=== PATIENT | female | born 1985 | race American Indian/Alaskan Native ===

== ENCOUNTER 2018-02-25 23:45 | Emergency (ER) | payer SELFPAY | END 2018-02-26 00:35 | disposition left against medical advice (07) | LOC: ED 23:45 | DX: R51 Headache (principal); Z53.21 Procedure and treatment not carried out due to patient leaving prior to being seen by health care provider ==

== ENCOUNTER 2019-04-07 11:11 | Emergency (ER) | payer OTHER ==
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
[2019-04-07] MEDS ORDERED: IBUPROFEN 800 MG TAB PO ONE (15:54)
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
[2019-04-07 17:22] VITALS: BP 127/85
== END 2019-04-07 17:22 | disposition home or self-care (01) ==
LOC: ED 11:11
DX: S39.012A Strain of muscle, fascia and tendon of lower back, initial encounter (principal); S00.93XA Contusion of unspecified part of head, initial encounter; I10 Essential (primary) hypertension; E11.9 Type 2 diabetes mellitus without complications; Z79.899 Other long term (current) drug therapy; V49.49XA Driver injured in collision with other motor vehicles in traffic accident, initial encounter; Y93.89 Activity, other specified; Y92.410 Unspecified street and highway as the place of occurrence of the external cause; Y99.8 Other external cause status
CPT/HCPCS: 70450; 72100